=== PATIENT | female | born 1940 | race Caucasian/White ===

== ENCOUNTER 2017-07-11 06:55 | Inpatient (IN) | payer OTHER ==
--- NOTE | 2017-07-11 07:02 | EDPHY ---
H & P Stated Complaint: N/V/D Time Seen by Provider: 07/11/17 06:56 HPI/ROS: CHIEF COMPLAINT: Abdominal pain, nausea, loose stool HISTORY OF PRESENT ILLNESS: The patient presents to the ED with complaints of acute abdominal pain, nausea and loose stool. The patient's symptoms began in the evening. She had felt well prior to going to bed. The patient denies prior history of abdominal disease or surgery. She denies any fever or travel outside the [place]. Her past medical history is significant only for hyperlipidemia. REVIEW OF SYSTEMS: A comprehensive 10 point review of systems is otherwise negative aside from elements mentioned in the history of present illness. Source: Patient Exam Limitations: No limitations - Personal History Current Tetanus/Diphtheria Vaccine: Yes Current Tetanus Diphtheria and Acellular Pertussis (TDAP): Yes - Medical/Surgical History Hx Asthma: No Hx Chronic Respiratory Disease: No Hx Diabetes: No Hx Cardiac Disease: No Hx Renal Disease: No Hx Cirrhosis: No Hx Alcoholism: No Hx HIV/AIDS: No Hx Splenectomy or Spleen Trauma: No Other PMH: high chol - Social History Smoking Status: Never smoked - Physical Exam Exam: General Appearance: Alert, mild discomfort secondary to pain and nausea Eyes: Pupils equal and round no pallor or injection ENT, Mouth: Mucous membranes moist Respiratory: There are no retractions, lungs are clear to auscultation Cardiovascular: Regular rate and rhythm Gastrointestinal: Generalized abdominal tenderness greatest in the epigastrium and right upper quadrant, positive bowel sounds Neurological: A&O, normal motor function, normal sensory exam, normal cranial nerves Skin: Warm and dry, no rashes Musculoskeletal: Neck is supple nontender Extremities: symmetrical, full range of motion Constitutional: Initial Vital Signs Temperature (C) 36.4 C 07/11/17 06:57 Heart Rate 67 07/11/17 06:57 Respiratory Rate 16 07/11/17 06:57 Blood Pressure 165/65 H 07/11/17 06:57 O2 Sat (%) 96 07/11/17 06:57 O2 Delivery Mode Room Air Allergies/Adverse Reactions: adhesive tape Allergy (Verified 07/11/17 09:49) Iodinated Contrast- Oral and IV Dye Allergy (Verified 07/11/17 09:49) horse serum Allergy (Uncoded 07/11/17 09:49) Home Medications: Medication Instructions Recorded Atorvastatin Calcium [Lipitor 40 40 mg PO DAILY 07/11/17 mg (*)] C/E/Zn/Cu/OM3/DHA/EPA/LUT/ZEAX 1 each PO DAILY 07/11/17 [Preservision Areds 2 Softgel] Cholecalciferol Vit D3 [Vitamin D3 1,000 units PO DAILY 07/11/17 (*)] Medical Decision Making - Diagnostics Imaging Results: Imaging Impressions Abdomen CT 07/11/17 07:40 Impression: Cecal volvulus. Results discussed with Dr. Francis Rios at 8:19 AM. General information for patients regarding this examination can be found at [email or web address]. If you have questions or comments about this report, please contact me at (hospital) or [phone] (cell). ED Course/Re-evaluation: The patient presents to the emergency department with acute abdominal pain. She had an IV established. The patient received IV Zofran and morphine. The patient was taken for a stat CT scan of the abdomen pelvis. This does demonstrate evidence of a cecal volvulus. There is no evidence of free air. I consulted with Dr. Peyton Baron who is on-call for General surgery. The patient received 1 g of IV Invanz. She received a L of normal saline. She received an additional dose of IV fentanyl. The patient was re-evaluated by myself at 8:00 a.m.. She continues to have ongoing pain. 8:15 a.m.: Patient is being evaluated by Dr. Peyton Baron. She will be taken emergently to the operating room. I spoke with the [facility] service who is aware the patient will be taken to the OR and admitted to [facility]. Differential Diagnosis: Differential diagnosis considered includes perforation, obstruction, cholecystitis, volvulus, appendicitis Critical Care Time: Critical care time exclusive of procedures and exclusive of the PA's time was 35 minutes, performed by myself, Ze Rios MD. The patient presents to the emergency department with an acute abdomen. She required stat abdominal imaging. I reviewed her case with the radiologist Dr. Schwartz. I consulted Dr. Baron who evaluated the patient in the emergency department emergently. She will be taken to the operating room for repair for cecal volvulus. - Data Points Laboratory Results: Laboratory Results 07/11/17 07:15 07/11/17 07:15 07/11/17 07/11/17 07:15 07:15 WBC 12.40 10^3/uL H 10^3/uL (3.80-9.50) RBC 4.23 10^6/uL 10^6/uL (4.18-5.33) Hgb 13.7 g/dL g/dL (12.6-16.3) Hct 39.3 % % (38.0-47.0) MCV 92.9 fL fL (81.5-99.8) MCH 32.4 pg pg (27.9-34.1) MCHC 34.9 g/dL g/dL (32.4-36.7) RDW 13.7 % % (11.5-15.2) Plt Count 245 10^3/uL 10^3/uL (150-400) MPV 10.1 fL fL (8.7-11.7) Neut % (Auto) 89.7 % H % (39.3-74.2) Lymph % (Auto) 7.2 % L % (15.0-45.0) [place] % (Auto) 2.3 % L % (4.5-13.0) Eos % (Auto) 0.2 % L % (0.6-7.6) Baso % (Auto) 0.3 % % (0.3-1.7) Nucleat RBC Rel Count 0.0 % % (0.0-0.2) Absolute Neuts (auto) 11.12 10^3/uL H 10^3/uL (1.70-6.50) Absolute Lymphs (auto) 0.89 10^3/uL L 10^3/uL (1.00-3.00) Absolute Monos (auto) 0.29 10^3/uL L 10^3/uL (0.30-0.80) Absolute Eos (auto) 0.02 10^3/uL L 10^3/uL (0.03-0.40) Absolute Basos (auto) 0.04 10^3/uL 10^3/uL (0.02-0.10) Absolute Nucleated RBC 0.00 10^3/uL 10^3/uL (0-0.01) Immature Gran % 0.3 % % (0.0-1.1) Immature Gran # 0.04 10^3/uL 10^3/uL (0.00-0.10) Sodium 143 mEq/L mEq/L (134-144) Potassium 4.1 mEq/L mEq/L (3.5-5.2) Chloride 110 mEq/L mEq/L (97-110) Carbon Dioxide 19 mEq/l L mEq/l (22-31) Anion Gap 14 mEq/L mEq/L (8-16) BUN 14 mg/dL mg/dL (7-23) Creatinine 0.6 mg/dL mg/dL (0.6-1.0) Estimated GFR > 60 Glucose 168 mg/dL H mg/dL (70-100) Calcium 9.1 mg/dL mg/dL (8.5-10.4) Total Bilirubin 0.4 mg/dL mg/dL (0.1-1.4) Conjugated Bilirubin 0.3 mg/dL mg/dL (0.0-0.5) Unconjugated Bilirubin 0.1 mg/dL mg/dL (0.0-1.1) AST 38 IU/L IU/L (14-46) ALT 37 IU/L IU/L (9-52) Alkaline Phosphatase 77 IU/L IU/L (38-126) Total Protein 7.1 g/dL g/dL (6.3-8.2) Albumin 4.5 g/dL g/dL (3.5-5.0) Lipase 126 IU/L IU/L (23-300) Medications Given: Discontinued Medications Fentanyl (Sublimaze) 50 mcg IVP EDNOW ONE Stop: 07/11/17 07:45 Last Admin: 07/11/17 07:49 Dose: 50 mcg Sodium Chloride (Ns) 1,000 mls @ 0 mls/hr IV EDNOW ONE; Wide Open PRN Reason: Protocol Stop: 07/11/17 07:04 Last Admin: 07/11/17 07:25 Dose: 1,000 mls Ertapenem 1 gm/ Sodium (Chloride) 100 mls @ 200 mls/hr IV EDNOW ONE PRN Reason: Protocol Stop: 07/11/17 08:52 Last Admin: 07/11/17 08:49 Dose: 100 mls Lactated Ringer's (Lr) 1,000 mls @ 0 mls/hr IV ONCE ONE PRN Reason: KVO Stop: 07/11/17 09:22 Last Admin: 07/11/17 09:44 Dose: 1,000 mls Morphine Sulfate (Morphine) 4 mg IVP EDNOW ONE Stop: 07/11/17 07:17 Last Admin: 07/11/17 07:24 Dose: 4 mg Ondansetron HCl (Zofran) 4 mg IVP EDNOW ONE Stop: 07/11/17 07:17 Last Admin: 07/11/17 07:25 Dose: 4 mg Departure - Departure Disposition: [facility] Inpatient Acute Clinical Impression: Cecal volvulus Condition: Fair
[2017-07-11] MEDS ORDERED: NS 1,000 ML IV ONE ×2 (07:03→15:59)
[2017-07-11] MEDS ORDERED: ONDANSETRON 4 MG/2 ML VIAL IVP ONE (07:16)
[2017-07-11 07:23] LABS: % IMMATURE GRANULYOCYTES 0.3 % (0.0-1.1); ABSOLUTE IMMATURE GRANULOCYTES 0.04 10^3/uL (0.00-0.10); ADD DIFF? NO; ADD MORPH? NO; ADD SCAN? NO; ATYPICAL LYMPHOCYTE FLAG 0 (0-99); FRAGMENT RBC FLAG 0 (0-99); HEMATOCRIT 39.3 % (38.0-47.0); HEMOGLOBIN 13.7 g/dL (12.6-16.3); LEFT SHIFT FLG 0 (0-99); LIPEMIA HEMOLYSIS FLAG 90 (0-99); MEAN CELL HEMOGLOBIN 32.4 pg (27.9-34.1); MEAN CELL HEMOGLOBIN CONCENTR. 34.9 g/dL (32.4-36.7); MEAN CELL VOLUME 92.9 fL (81.5-99.8); MEAN PLATELET VOLUME 10.1 fL (8.7-11.7); PLATELET CLUMPS FLAG 80 (0-99); PLATELET COUNT 245 10^3/uL (150-400); RED BLOOD CELL COUNT 4.23 10^6/uL (4.18-5.33); RED CELL DISTRIBUTION WIDTH 13.7 % (11.5-15.2)
[2017-07-11 07:39] LABS: ALANINE AMINOTRANSFERASE 37 IU/L (9-52); ALBUMIN 4.5 g/dL (3.5-5.0); ALKALINE PHOSPHATASE 77 IU/L (38-126); ANION GAP 14 mEq/L (8-16); ASPARTATE AMINOTRANSFERASE 38 IU/L (14-46); BILIRUBIN,TOTAL 0.4 mg/dL (0.1-1.4); BILIRUBIN-CONJUGATED 0.3 mg/dL (0.0-0.5); BILIRUBIN-UNCONJUGATED 0.1 mg/dL (0.0-1.1); CALCIUM 9.1 mg/dL (8.5-10.4); CARBON DIOXIDE 19 mEq/l (22-31); CHLORIDE 110 mEq/L (97-110); CREATININE 0.6 mg/dL (0.6-1.0); GLOMERULAR FILTRATION RATE > 60; GLUCOSE 168 mg/dL (70-100); POTASSIUM 4.1 mEq/L (3.5-5.2); SODIUM 143 mEq/L (134-144); TOTAL PROTEIN 7.1 g/dL (6.3-8.2)
[2017-07-11] MEDS ORDERED: fentaNYL 100 MCG/2 ML INJ IVP ONE (07:44)
[2017-07-11] MEDS ORDERED: IOPAMIDOL (ISOVUE-300) 100 ML BTL ONE (07:45)
[2017-07-11] MEDS ORDERED: ERTAPENEM 1 GM in NS 100 ML IV ONE (08:23)
[2017-07-11] MEDS ORDERED: BUPIVACAINE 0.5% 30 ML SDV ONE (08:43)
--- NOTE | 2017-07-11 09:03 | GHP ---
[f rep st] HISTORY AND PHYSICAL DATE OF ADMISSION: 07/11/2017 CHIEF COMPLAINT: Cecal volvulus. HISTORY OF PRESENT ILLNESS: The patient is a 76-year-old woman with a history of abdominal pain and loose stools. At 3 am, she had abrupt onset of acute abdominal pain. The pain did not subside with any usual manners, and so she presented to the emergency room. She had a CT scan performed, which showed a cecal volvulus. She has been nauseated but no vomiting. PAST MEDICAL HISTORY: None. PAST SURGICAL HISTORY: D and C. MEDICATIONS: None. ALLERGIES: No known drug allergies. SOCIAL HISTORY: She has never smoked. FAMILY HISTORY: Noncontributory. REVIEW OF SYSTEMS: 10-point review of systems is negative, except for loose stools, nausea, and abdominal pain. PHYSICAL EXAM: VITAL SIGNS: Reviewed. GENERAL: Pleasant, lying on side, appears ill, well nourished. HEENT: Normocephalic. No gross hearing deficits. Mucous membranes moist. Pupils equal and round. No scleral icterus. LUNGS: Clear to auscultation bilaterally. No increased work of breathing. CARDIAC: Regular rate. ABDOMEN: Bowel sounds hypoactive. She is distended. She is tender to palpation. No abdominal incisions noted. MUSCULOSKELETAL: Normal nails. SKIN: Warm and dry. NEURO: Grossly intact. PSYCH: Mood and affect normal. RESULTS REVIEWED: I personally reviewed the results of her CT scan, and can see the right colon on the left side of her abdomen with a swirl sign consistent with cecal volvulus. IMPRESSION AND PLAN: The patient is a 76-year-old woman with a cecal volvulus. I will take her to the operating room for an open right hemicolectomy. We discussed that there is a possibility of bowel compromise/necrosis. We discussed the risks of surgery including but not limited to stroke, heart attack , , blood clot, infection, bleeding, leak. She had her questions answered to her satisfaction. She needs to go to the operating room urgently. /[id number]/MODL MTDD
[2017-07-11] MEDS ORDERED: LR 1,000 ML IV ONE (09:21)
[2017-07-11] MEDS ORDERED: MIDAZOLAM 2 MG/2 ML VIAL IVP ONE (09:37)
--- NOTE | 2017-07-11 09:37 | PDANEPAE ---
ANE History of Present Illness bowel resection ANE Past Medical History - Cardiovascular History Hx Hypertension: No Hx Arrhythmias: No Hx Chest Pain: No Hx Coronary Artery / Peripheral Vascular Disease: No Hx CHF / Valvular Disease: No Hx Palpitations: No - Pulmonary History Hx COPD: No Hx Asthma/Reactive Airway Disease: No Hx Recent Upper Respiratory Infection: No Hx Oxygen in Use at Home: No Hx Sleep Apnea: No - Neurologic History Hx Cerebrovascular Accident: No Hx Seizures: No Hx Dementia: No - Endocrine History Hx Diabetes: No Hypothyroid: No Hyperthyroid: No Obesity: no - Renal History Hx Renal Disorders: No - Liver History Hx Hepatic Disorders: No ANE Review of Systems Review of Systems: - Exercise capacity METS (RN): 4 METS ANE Patient History - Allergies Allergies/Adverse Reactions: No Known Allergies Allergy (Unverified 07/11/17 07:00) - NPO status NPO Since - Liquids (Date): 07/10/17 NPO Since - Liquids (Time): 22:00 NPO Since - Solids (Date): 07/10/17 NPO Since - Solids (Time): 19:00 - Anes Hx Anes Hx: no prior problems - Smoking Hx Smoking Status: Never smoked ANE Labs/Vital Signs - Labs Result Diagrams: 07/11/17 07:15 07/11/17 07:15 - Vital Signs Blood Pressure: 111/82 Heart Rate: 73 Respiratory Rate: 18 O2 Sat (%): 95 Height: 160.02 cm Weight: 49.442 kg ANE Physical Exam - Airway Mallampati Score: Class 2 Mouth exam: normal dental/mouth exam - Pulmonary Pulmonary: no respiratory distress - Cardiovascular Cardiovascular: regular rate and rhythym - ASA Status ASA Status: II ANE Anesthesia Plan Anesthesia Plan: general endotracheal anesthesia
[2017-07-11] MEDS ORDERED: LIDOCAINE 2% 5 ML SDV ONE (09:42)
[2017-07-11] MEDS ORDERED: DEXAMETHASONE 4 MG/ML VIAL ONE (09:42)
[2017-07-11] MEDS ORDERED: ROCURONIUM 50 MG/5 ML VIAL ONE (09:42)
[2017-07-11] MEDS ORDERED: ONDANSETRON 4 MG/2 ML VIAL ONE (09:42)
[2017-07-11] MEDS ORDERED: PROPOFOL 200 MG/20 ML VIAL ONE (09:43)
[2017-07-11] MEDS ORDERED: fentaNYL 100 MCG/2 ML INJ ONE ×2 (09:43→11:55)
[2017-07-11] MEDS ORDERED: ONDANSETRON 4 MG/2 ML VIAL IVP PRN (09:54)
[2017-07-11] MEDS ORDERED: diphenhydrAMINE 25 MG CAP PO PRN (09:54)
[2017-07-11] MEDS ORDERED: ACETAMINOPHEN 325 MG TAB PO PRN (09:54)
[2017-07-11] MEDS ORDERED: ONDANSETRON DISINTEGRATING 4 MG TAB PO PRN (09:54)
[2017-07-11] MEDS ORDERED: HYDROmorphONE/DILAUDID 1 MG/ML INJ IVP PRN (09:55)
[2017-07-11] MEDS ORDERED: SUCCINYLCHOLINE CHLORIDE*ANESTHESIA ONLY*200 MG/10 ML SYR IVP ONE (09:55)
[2017-07-11] MEDS ORDERED: KETOROLAC 30 MG/1 ML SDV ONE (10:05)
[2017-07-11] MEDS ORDERED: SUGAMMADEX SODIUM 200 MG/2 ML VIAL IVP ONE (10:05)
--- NOTE | 2017-07-11 10:52 | POSTOPPROG ---
Post Op Note Date of Operation: 07/11/17 Surgeon: Peyton Baron Grape Grower: dorian Anesthesiologist: beatriz Anesthesia: GET(General Endotracheal) Pre-op Diagnosis: cecal volvulus Post-op Diagnosis: same Indication: 76yo F with abdominal pain, cecal volvulus on CT Procedure: open R hemicolectomy Findings: cecal volvulus Inf/Abcess present in the surg proc area at time of surgery?: No Depth: Organ Space EBL: Minimal Specimen(s): R ascending colon
--- NOTE | 2017-07-11 11:17 | POSTANESTH ---
Post Anesthetic Evaluation Cardiovascular Status: Normal, Stable Respiratory Status: Normal, Stable Level of Consciousness/Mental Status: Can Participate in Eval Pain Control: Adequate, Prn Tx Ordered Nausea/Vomiting Control: Adequate, Prn Tx Ordered Complications Possibly Related to Anesthesia: None Noted
[2017-07-11] MEDS ORDERED: NALOXONE HCL 0.4 MG/ML INJ IVP PRN (11:42)
[2017-07-11] MEDS ORDERED: ALBUTEROL 3 ML DEYVIAL IH PRN (11:42)
[2017-07-11] MEDS ORDERED: fentaNYL 100 MCG/2 ML INJ IVP PRN (11:42)
[2017-07-11] MEDS ORDERED: LR 500 ML IV PRN (11:42)
[2017-07-11] MEDS ORDERED: HYDROmorphONE/DILAUDID 1 MG/ML INJ ONE (11:48)
[2017-07-11] MEDS: HYDROmorphONE/DILAUDID 1 MG/ML INJ IVP PRN ×3 (11:50→12:22)
[2017-07-11] MEDS: NS 1,000 ML IV SCH (13:09)
[2017-07-11] MEDS: KETOROLAC 15 MG/1 ML SDV IVP SCH ×3 (13:10→23:39)
[2017-07-12] MEDS: NS 1,000 ML IV SCH (02:51)
[2017-07-12 03:11] LABS: % IMMATURE GRANULYOCYTES 0.3 % (0.0-1.1); ABSOLUTE IMMATURE GRANULOCYTES 0.03 10^3/uL (0.00-0.10); ADD DIFF? NO; ADD MORPH? NO; ADD SCAN? NO; ATYPICAL LYMPHOCYTE FLAG 0 (0-99); FRAGMENT RBC FLAG 0 (0-99); HEMATOCRIT 25.9 % (38.0-47.0); HEMOGLOBIN 8.8 g/dL (12.6-16.3); LEFT SHIFT FLG 0 (0-99); LIPEMIA HEMOLYSIS FLAG 90 (0-99); MEAN CELL HEMOGLOBIN 32.6 pg (27.9-34.1); MEAN CELL VOLUME 95.9 fL (81.5-99.8); MEAN PLATELET VOLUME 9.6 fL (8.7-11.7); PLATELET CLUMPS FLAG 0 (0-99); PLATELET COUNT 200 10^3/uL (150-400); RED CELL DISTRIBUTION WIDTH 14.2 % (11.5-15.2)
[2017-07-12 03:21] LABS: ANION GAP 9 mEq/L (8-16); CALCIUM 8.1 mg/dL (8.5-10.4); CARBON DIOXIDE 22 mEq/l (22-31); CHLORIDE 112 mEq/L (97-110); CREATININE 0.7 mg/dL (0.6-1.0); GLOMERULAR FILTRATION RATE > 60; GLUCOSE 138 mg/dL (70-100); POTASSIUM 3.9 mEq/L (3.5-5.2); SODIUM 143 mEq/L (134-144)
[2017-07-12] MEDS: KETOROLAC 15 MG/1 ML SDV IVP SCH (06:31)
[2017-07-12] MEDS ORDERED: NS 1,000 ML IV ONE (07:06)
--- NOTE | 2017-07-12 12:11 | ASMTCASEMG ---
Living Arrangements What is your living Answers: Alone arrangement? Who do you live with? Type Of Residence What kind of residence do Answers: House you live in? Discharge Plan Comments Coordination Status Comments Notes: Pt is a 76 y/o female admitted w/ loose stool and abdominal pain. Pt had a open right hemicolectomy. PT is recommending home independent. CM available for d/c needs. Date Signed: 07/12/2017 12:10 PM Electronically Signed By:ZEV Teran
[2017-07-12] MEDS: HYDROCODONE/APAP 5/325 TAB PO PRN ×2 (15:40→21:11)
[2017-07-13] MEDS: NS 1,000 ML IV SCH ×2 (00:20→13:42)
[2017-07-13] MEDS: HYDROCODONE/APAP 5/325 TAB PO PRN ×4 (05:21→20:28)
[2017-07-13 05:26] LABS: % IMMATURE GRANULYOCYTES 0.2 % (0.0-1.1); ABSOLUTE IMMATURE GRANULOCYTES 0.01 10^3/uL (0.00-0.10); ADD DIFF? NO; ADD MORPH? NO; ADD SCAN? NO; ATYPICAL LYMPHOCYTE FLAG 0 (0-99); FRAGMENT RBC FLAG 0 (0-99); HEMOGLOBIN 10.1 g/dL (12.6-16.3); LEFT SHIFT FLG 0 (0-99); LIPEMIA HEMOLYSIS FLAG 90 (0-99); MEAN CELL HEMOGLOBIN 32.3 pg (27.9-34.1); MEAN CELL HEMOGLOBIN CONCENTR. 34.8 g/dL (32.4-36.7); MEAN CELL VOLUME 92.7 fL (81.5-99.8); MEAN PLATELET VOLUME 10.3 fL (8.7-11.7); PLATELET CLUMPS FLAG 0 (0-99); PLATELET COUNT 140 10^3/uL (150-400); RED BLOOD CELL COUNT 3.13 10^6/uL (4.18-5.33)
[2017-07-13 05:43] LABS: ANION GAP 6 mEq/L (8-16); CALCIUM 7.8 mg/dL (8.5-10.4); CARBON DIOXIDE 23 mEq/l (22-31); CHLORIDE 113 mEq/L (97-110); CREATININE 0.6 mg/dL (0.6-1.0); GLOMERULAR FILTRATION RATE > 60; GLUCOSE 91 mg/dL (70-100); POTASSIUM 3.8 mEq/L (3.5-5.2); SODIUM 142 mEq/L (134-144)
--- NOTE | 2017-07-13 08:55 | SOAPPROG ---
SOAP Progress Note Assessment/Plan: Assessment: POD # 1 s/p open right hemicolectomy for cecal volvulus. Had 1 L old blood per rectum overnight with drop in H/H. ? sloughing and old blood from volvulus vs staple line Will monitor Repeat H/H down. Will transfuse 2 units of blood and recheck in am Ambulate Sips of clears S: Feeling better this am O: Lying in bed, appears comfortable CTAB RRR BS presents, soft, incision cdi, not distended Ji with clear yellow urine Plan: 07/13/17 08:53 Objective: Vital Signs Temp Pulse Resp BP Pulse Ox 37.1 C 67 12 135/72 H 97 07/13/17 03:14 07/13/17 03:14 07/13/17 03:14 07/13/17 03:14 07/13/17 03:14 Laboratory Results 07/13/17 04:50 07/13/17 04:50 07/12/17 07/13/17 07/14/17 05:59 05:59 05:59 Intake Total 8545 6837 Output Total 5933 750 Balance 1540 0742 ICD10 Worksheet Patient Problems: Problems Problem Status Onset Cecal volvulus Acute
--- NOTE | 2017-07-13 09:28 | SOAPPROG ---
SOAP Progress Note Assessment/Plan: Assessment: 76yo F POD #2 s/p open right hemicolectomy for cecal volvulus. acute blood loss anemia improved Pain controlled S/p 2u PRBCs yesterday. H/H improved Encouraged ambulation No flatus yet but lots of rumbling Ji out today Clear liquid diet S: Feeling well. Feels lots of rumbling in abdomen. No gas yet O: Sitting in chair, appears comfortable BS presents, soft, incision cdi, not distended Ji with clear yellow urine 07/13/17 09:40 07/13/17 13:26 07/16/17 11:49 Objective: Vital Signs Temp Pulse Resp BP Pulse Ox 37.1 C 67 12 135/72 H 97 07/13/17 03:14 07/13/17 03:14 07/13/17 03:14 07/13/17 03:14 07/13/17 03:14 Laboratory Results 07/13/17 04:50 07/13/17 04:50 07/12/17 07/13/17 07/14/17 05:59 05:59 05:59 Intake Total 3060 3603 Output Total 4017 750 Balance 1545 5303 ICD10 Worksheet Patient Problems: Problems Problem Status Onset Cecal volvulus Acute
[2017-07-14] MEDS: NS 1,000 ML IV SCH (01:48)
[2017-07-14] MEDS: HYDROCODONE/APAP 5/325 TAB PO PRN ×5 (01:48→22:55)
--- NOTE | 2017-07-14 10:49 | SOAPPROG ---
SOAP Progress Note Assessment/Plan: Assessment: SP COLECTOMY/ AFEBRILE/ WOUND OK/ VS STABLE / NO FURTHER BLEEDING ABD SOFT, NONTENDER/ MILDLY DISTENDED Plan:ADVANCE DIET 07/14/17 10:47 Objective: Vital Signs Temp Pulse Resp BP Pulse Ox 36.8 C 71 18 145/76 H 90 L 07/14/17 07:20 07/14/17 07:20 07/14/17 07:20 07/14/17 07:20 07/14/17 07:20 Laboratory Results 07/13/17 04:50 07/13/17 04:50 07/13/17 07/14/17 07/15/17 05:59 05:59 04:59 Intake Total 3603 2117 Output Total 750 1895 Balance 2853 222 ICD10 Worksheet Patient Problems: Problems Problem Status Onset Cecal volvulus Acute
[2017-07-15 04:53] LABS: % IMMATURE GRANULYOCYTES 0.2 % (0.0-1.1); ABSOLUTE IMMATURE GRANULOCYTES 0.01 10^3/uL (0.00-0.10); ADD DIFF? NO; ADD MORPH? NO; ADD SCAN? NO; ATYPICAL LYMPHOCYTE FLAG 0 (0-99); FRAGMENT RBC FLAG 0 (0-99); HEMATOCRIT 28.2 % (38.0-47.0); HEMOGLOBIN 9.7 g/dL (12.6-16.3); LEFT SHIFT FLG 0 (0-99); LIPEMIA HEMOLYSIS FLAG 90 (0-99); MEAN CELL HEMOGLOBIN 31.4 pg (27.9-34.1); MEAN CELL HEMOGLOBIN CONCENTR. 34.4 g/dL (32.4-36.7); MEAN CELL VOLUME 91.3 fL (81.5-99.8); MEAN PLATELET VOLUME 9.5 fL (8.7-11.7); PLATELET CLUMPS FLAG 0 (0-99); PLATELET COUNT 155 10^3/uL (150-400); RED BLOOD CELL COUNT 3.09 10^6/uL (4.18-5.33); RED CELL DISTRIBUTION WIDTH 13.8 % (11.5-15.2)
[2017-07-15] MEDS: HYDROCODONE/APAP 5/325 TAB PO PRN ×3 (05:15→22:37)
--- NOTE | 2017-07-15 08:36 | SOAPPROG ---
SOAP Progress Note Assessment/Plan: Assessment: SP COLECTOMY/ AFEBRILE/ WOUND OK/ VS STABLE / NO FURTHER BLEEDING ABD SOFT, NONTENDER/ MILDLY DISTENDED Plan:ADVANCE DIET 07/14/17 10:47 07/15/17 08:35 AFEBRILE/ WOUND OK/ UO GOOD/ +FLATUS/ HCT STABLE AT 29/ ABD SOFT/ TOLERATING PO/ HOME SOON Objective: Vital Signs Temp Pulse Resp BP Pulse Ox 36.7 C 72 17 101/56 L 93 07/15/17 08:15 07/15/17 08:15 07/15/17 08:15 07/15/17 08:15 07/15/17 08:15 Laboratory Results 07/15/17 04:40 07/13/17 04:50 07/14/17 07/15/17 07/16/17 06:59 05:59 05:59 Intake Total Output Total Balance ICD10 Worksheet Patient Problems: Problems Problem Status Onset Cecal volvulus Acute
[2017-07-15] MEDS: ENOXAPARIN 40 MG/0.4 ML SYR SC SCH (10:20)
[2017-07-15] MEDS: POLYETHYLENE GLYCOL 3350 17 GM PKT PO SCH (10:20)
[2017-07-15 15:29] VITALS: PULSE 64
--- NOTE | 2017-07-15 18:05 | ASMTCMCOM ---
CM Note CM Note Notes: Reviewed chart for discharge plan, pt's progress. Per MD notes, pt s/p colectomy, wound is healing, pt should be ready for discharge soon. PT/OT w/ no recs for discharge, pt safe to return home. Anticipate pt will likely d/c independently when stable. CM avail for any potential needs or issues. Current Discharge Plan: Home independently Date Signed: 07/15/2017 06:04 PM Electronically Signed By:Ita Otoole RN
[2017-07-15 22:24] VITALS: RESP 16
[2017-07-16] MEDS: HYDROCODONE/APAP 5/325 TAB PO PRN ×2 (04:39→09:35)
[2017-07-16 07:45] VITALS: BP 116/66; TEMP 98.4; O2SAT 90
[2017-07-16] MEDS: ENOXAPARIN 40 MG/0.4 ML SYR SC SCH (09:25)
[2017-07-16] MEDS: POLYETHYLENE GLYCOL 3350 17 GM PKT PO SCH (09:25)
--- NOTE | 2017-07-16 10:44 | SOAPPROG ---
SOAP Progress Note Assessment/Plan: Assessment: 76yo F s/p open right hemicolectomy for cecal volvulus. acute blood loss anemia - resolved Pain controlled with PO Passing flatus. No BM yet Tolerating regular diet Dispo: home today. f/u in 2 weeks S: Feeling well. Passing flatus. Ready to go home today O: Sitting in chair, appears comfortable BS presents, soft, incision cdi, not distended Objective: Vital Signs Temp Pulse Resp BP Pulse Ox 36.9 C 64 16 116/66 90 L 07/16/17 07:38 07/16/17 07:38 07/16/17 07:38 07/16/17 07:38 07/16/17 07:38 Laboratory Results 07/15/17 04:40 07/13/17 04:50 07/15/17 07/16/17 07/17/17 05:59 05:59 05:59 Intake Total 700 Output Total 2000 Balance -1300 ICD10 Worksheet Patient Problems: Problems Problem Status Onset Cecal volvulus Acute
--- NOTE | 2017-07-16 11:15 | ASMTCMCOM ---
CM Note CM Note Notes: chart reviewed. Patient medically cleared for dc. Per PT/OT patient independent no needs identified. CM available should needs arise. Date Signed: 07/16/2017 11:14 AM Electronically Signed By:Stephanie Aden RN
--- NOTE | 2017-07-17 16:55 | ASDISCHSUM ---
Discharge Information Plan Status:Home with No Needs Medically Cleared to Leave:07/15/2017 Discharge Date:07/16/2017 11:22 AM CM D/C Disposition:Home, Routine, Self-Care ADT D/C Disposition:Home, Routine, Self-Care Projected Discharge Date:07/16/2017 12:00 AM Transportation at D/C: Discharge Delay Reason: Follow-Up Date:07/16/2017 12:00 AM Discharge Slot: Final Diagnosis: Placement Information Patient Contact Information Contact Name:SOFIA Relationship:Son Address:[address] Work Phone: [facility] Phone: [facility]/Zip Code:[place] [address] Email: Financial Information Financial Class:Medicare Advantage Plans Primary Plan Desc:[employer] ADV IP Primary Plan Number:[id number] Secondary Plan Desc: Secondary Plan Number: Assessment Information [facility] Initial CM Assessment Living Arrangements What is your living Answers: Alone arrangement? Who do you live with? Type Of Residence What kind of residence do Answers: House you live in? Discharge Plan Comments Coordination Status Comments Notes: Pt is a 76 y/o female admitted w/ loose stool and abdominal pain. Pt had a open right hemicolectomy. PT is recommending home independent. CM available for d/c needs. Date Signed: 07/12/2017 12:10 PM Electronically Signed By:ZEV Teran [facility] CM Progress Note CM Note CM Note Notes: Reviewed chart for discharge plan, pt's progress. Per MD notes, pt s/p colectomy, wound is healing, pt should be ready for discharge soon. PT/OT w/ no recs for discharge, pt safe to return home. Anticipate pt will likely d/c independently when stable. CM avail for any potential needs or issues. Current Discharge Plan: Home independently Date Signed: 07/15/2017 06:04 PM Electronically Signed By:Ita Otoole RN [facility] CM Progress Note CM Note CM Note Notes: chart reviewed. Patient medically cleared for dc. Per PT/OT patient independent no needs identified. CM available should needs arise. Date Signed: 07/16/2017 11:14 AM Electronically Signed By:Stephanie Aden RN Intervention Information Intervention Type:*IM-Signed Date of Service:07/16/2017 11:01 AM Patient Type:Inpatient Staff Member:Vesna Negron Hours: Discipline: Severity: Comment:
== END 2017-07-16 11:22 | disposition home or self-care (01) | DRG 330 ==
LOC: F3E 12:59
PROVIDERS: ADMIT Surgery; ATTEND Surgery
PROC: 0DBH0ZZ Excision of Cecum, Open Approach (ICD-10-PCS; principal; 2017-07-11 09:00)
PROC: 30233N1 Transfusion of Nonautologous Red Blood Cells into Peripheral Vein, Percutaneous Approach (ICD-10-PCS; 2017-07-12)
DX: K56.2 Volvulus (principal); D62 Acute posthemorrhagic anemia; E78.5 Hyperlipidemia, unspecified
CPT/HCPCS: 96374; 97161-GP; 97165-GO; G8978-GP-CI; G8979-GP-CI; G8980-GP-CI; J0330; J1100; J1170; J1335; J1650; J1885; J2250; J2405; J2704; J3010; P9016; Q9967